=== PATIENT | male | born 1990 | race African-American/Black ===

== ENCOUNTER 2016-05-21 09:00 | Emergency (ER) | payer SELFPAY ==
[~2016-05-21] VITALS: Ht 180.3 cm; Wt 72.3 kg
[2016-05-21 10:58] LABS: EOSINOPHIL (%) 0.1 % (0-5); HEMATOCRIT 48.8 % (38.0-50.0); IMMATURE GRANULOCYTE (%) 0.2 % (0.0-0.7); INSTRUMENT ABS NEUTROPHIL CT 6.9 K/uL; LYMPHOCYTE COUNT 1.4 K/uL (1.0-2.8); MCH 30.3 PG (29.0-34.0); MCHC 34.6 G/DL (30.0-36.0); MCV 87.5 FL (86-99); MEAN PLAT.VOLUME 11.8 uM^3 (9.0-12.4); MONOCYTE (%) 7.3 % (3-12); MONOCYTE COUNT 0.7 K/uL (0-0.8); NEUTROPHIL (%) 77.2 % (45-76); NEUTROPHIL COUNT 6.9 K/uL (1.8-6.4); PLATELET COUNT 141 K/uL (156-360); RBC DIS.WIDTH-CV 12.1 % (11.8-14.6); RBC DIS.WIDTH-SD 39.2 % (39-53); RED BLOOD COUNT 5.58 M/uL (4.00-5.50)
[2016-05-21 11:08] LABS: CHLORIDE 101 mEq/L (99-109); POTASSIUM 4.3 mEq/L (3.7-5.4); SODIUM 135 mEq/L (136-147)
[2016-05-21 11:10] LABS: GLUCOSE 88 mg/dL (70-99)
[2016-05-21 11:11] LABS: ANION GAP 8 MEQ/L (2-14)
[2016-05-21 11:12] LABS: TOTAL BILIRUBIN 1.5 mg/dL (0.0-1.0)
[2016-05-21 11:13] LABS: SERUM ETHYL ALCOHOL < 10 mg/dL
[2016-05-21 11:14] LABS: ALKALINE PHOSPHATASE 89 IU/L (3-129); GFR ESTIMATE (CALCULATED) > 59 mL/min/
[2016-05-21 11:15] LABS: UREA NITROGEN (BUN) 12 mg/dL (9-23)
[2016-05-21 11:48] LABS: ADD MIUA? NO; BILIRUBIN NEGATIVE; BLOOD NEGATIVE; COLOR YELLOW ((YELLOW)); GLUCOSE (STRIP) NEGATIVE; KETONES NEGATIVE; LEUKOCYTES NEGATIVE; NITRITE NEGATIVE; PROTEIN (STRIP) NEGATIVE
[2016-05-21 12:17] LABS: ADD MEDTOX COMMENT Y; AMPHETAMINE NEGATIVE (500 ng/mL); BARBITURATES NEGATIVE (200 ng/mL); BENZODIAZEPINES NEGATIVE (150 ng/mL); COCAINE NEGATIVE (150 ng/mL); INTERNAL CONTROLS VALID? YES; METHADONE NEGATIVE (200 ng/mL); METHAMPHETAMINE NEGATIVE (500 ng/mL); OPIATES (MORPHINE) NEGATIVE (100 ng/mL); OXYCODONE NEGATIVE (100 ng/mL); PHENCYCLIDINE NEGATIVE (25 ng/mL); PROPOXYPHENE NEGATIVE (300 ng/mL); THC CANNABINOIDS PRESUMPTIVE POSITIVE (50 ng/mL); TRICYCLIC ANTIDEPRESSANTS NEGATIVE (300 ng/mL)
[2016-05-21 12:29] LABS: INFLUENZA A VIRAL ANTIGEN NEGATIVE; INFLUENZA B VIRAL ANTIGEN NEGATIVE
[2016-05-21 14:31] VITALS: BP 102/69
== END 2016-05-21 14:32 | disposition home or self-care (01) ==
LOC: EME 09:00
PROVIDERS: Emergency Medicine
DX: F41.9 Anxiety disorder, unspecified (principal); F32.9 Major depressive disorder, single episode, unspecified; J06.9 Acute upper respiratory infection, unspecified; R51 Headache; Z72.0 Tobacco use
CPT/HCPCS: 70450; 71020; 80053; 81003; 84999; 85025; 87502; 90839; 93005; 99281; 99284; G0480

== ENCOUNTER 2016-08-20 19:13 | Inpatient (IN) | payer OTHER ==
[~2016-08-20] VITALS: Ht 170.2 cm; Wt 70.5 kg
[2016-08-20 19:37] LABS: HEMATOCRIT 45.9 % (38.0-50.0); MCH 29.7 PG (29.0-34.0); MCHC 34.2 G/DL (30.0-36.0); MCV 86.9 FL (86-99); MEAN PLAT.VOLUME 10.7 uM^3 (9.0-12.4); PLATELET COUNT 162 K/uL (156-360); RBC DIS.WIDTH-CV 12.6 % (11.8-14.6); RED BLOOD COUNT 5.28 M/uL (4.00-5.50); WHITE BLOOD COUNT 4.4 K/uL (4.1-10.2)
[2016-08-20 19:46] LABS: CHLORIDE 107 mEq/L (99-109); POTASSIUM 3.7 mEq/L (3.7-5.4); SODIUM 141 mEq/L (136-147)
[2016-08-20 19:47] LABS: GLUCOSE 85 mg/dL (70-99)
[2016-08-20 19:49] LABS: ANION GAP 11 MEQ/L (2-14)
[2016-08-20 19:50] LABS: SERUM ETHYL ALCOHOL < 10 mg/dL
[2016-08-20 19:51] LABS: GFR ESTIMATE (CALCULATED) > 59 mL/min/
[2016-08-20 19:52] LABS: UREA NITROGEN (BUN) 17 mg/dL (9-23)
[2016-08-21 00:41] VITALS: BP 107/72
[2016-08-21 15:29] VITALS: BP 113/55
[2016-08-22 07:58] VITALS: BP 106/63
[2016-08-22 16:33] VITALS: BP 126/73
[2016-08-23 07:45] VITALS: BP 102/59
[2016-08-23 15:59] VITALS: BP 108/59
[2016-08-24 07:48] VITALS: BP 110/64
[2016-08-24 15:24] VITALS: BP 121/61
[2016-08-25 07:48] VITALS: BP 100/56
[2016-08-25 15:23] VITALS: BP 119/67
[2016-08-26 07:35] VITALS: BP 108/63
[2016-08-26] MEDS ORDERED: RISPERDAL2 MG PO (10:31)
[2016-08-26] MEDS ORDERED: PRAZOSIN HCL2 MG PO (10:40)
== END 2016-08-26 12:56 | disposition home or self-care (01) | DRG 885 ==
LOC: EME 19:13 → EDOF 21:17 → 1WEST 21:17
PROVIDERS: Emergency Medicine
DX: F20.3 Undifferentiated schizophrenia (principal); R45.851 Suicidal ideations; F22 Delusional disorders; F43.10 Post-traumatic stress disorder, unspecified; F17.210 Nicotine dependence, cigarettes, uncomplicated; F33.9 Major depressive disorder, recurrent, unspecified; F41.9 Anxiety disorder, unspecified; Z79.899 Other long term (current) drug therapy; Z91.14 Patient's other noncompliance with medication regimen; Z56.0 Unemployment, unspecified
CPT/HCPCS: 80048; 85027; 90837; 97150 GO; 97165 GO; 99281; 99284; G0480; J2794